=== PATIENT | male | born 1985 | race Caucasian/White ===

== ENCOUNTER 2016-04-12 | Emergency (ER) | payer OTHER ==
--- NOTE | 2016-04-12 17:54 | ED ---
Recheck HPI - General Chief Complaint: Recheck/Abnormal Lab/Rx Stated Complaint: med refill Time Seen by Provider: 04/12/16 17:28 Source: patient, RN notes reviewed Mode of arrival: ambulatory Limitations: no limitations - History of Present Illness Initial Comments: Patient is a 30-year-old male since emergency room for a prescription refill. Patient states he has a history of bipolar disorder. Patient states he is on Prozac and Klonopin. [place] Patient states he has not established a primary care provider yet. Patient states he ran out of his medications and needs a refill until he can establish a primary care provider. Patient states she takes 20 mg of Prozac 4 times a day and 1 mg of Klonopin once a day. Denies any suicidal or homicidal ideations. Patient denies visual or auditory hallucinations. Patient denies any other past medical history. Patient denies fevers, chills, cough, chest pain, shortness of breath, headache, dizziness, nausea, vomiting. - Related Data Home Medications Medication Instructions Recorded Confirmed FLUoxetine HCL [PROzac] 1 tab PO QID 04/12/16 04/12/16 clonazePAM [KlonoPIN] 1 tab PO DAILY 04/12/16 04/12/16 Previous Rx's Medication Instructions Recorded FLUoxetine HCL [PROzac] 20 mg PO QID 14 Days 04/12/16 clonazePAM [KlonoPIN] 1 mg PO DAILY 14 Days 04/12/16 Allergies Allergy/AdvReac Type Severity Reaction Status Date / Time No Known Allergies Allergy Verified 04/12/16 17:31 Review of Systems ROS Statement: Those systems with pertinent positive or pertinent negative responses have been documented in the HPI. ROS Other: All systems not noted in ROS Statement are negative. Past Medical History Past Medical History: No Reported History History of Any Multi-Drug Resistant Organisms: None Reported Past Surgical History: No Surgical Hx Reported Past Psychological History: Depression Smoking Status: Never smoker Past Alcohol Use History: None Reported Past Drug Use History: Marijuana General Exam - General Exam Comments Initial Comments: Sitting in exam room, in no acute distress. Limitations: no limitations General appearance: alert, in no apparent distress Head exam: Present: atraumatic, normocephalic, normal inspection Eye exam: Present: normal appearance ENT exam: Present: normal exam Neck exam: Present: normal inspection Respiratory exam: Present: normal lung sounds bilaterally. Absent: respiratory distress Cardiovascular Exam: Present: regular rate, normal rhythm, normal heart sounds Extremities exam: Present: normal inspection Back exam: Present: normal inspection Neurological exam: Present: alert, oriented X3, CN II-XII intact, normal gait Psychiatric exam: Present: normal affect, normal mood Skin exam: Present: warm, dry, intact, normal color. Absent: rash Course Vital Signs 04/12/16 17:32 Temperature 98.1 F Pulse Rate 77 Respiratory 20 Rate Blood Pressure 144/81 O2 Sat by Pulse 97 Oximetry Medical Decision Making - Medical Decision Making Patient is a 30-year-old male presents to the emergency room for a prescription refill. Patient states he has a history of bipolar disorder for which he takes Prozac and Klonopin for. I agreed to refill patient's prescriptions until he can establish a primary care provider in this area. Patient states he understands everything that was discussed with him. Return parameters discussed. Disposition Clinical Impression: Encounter for medication refill, Bipolar disorder Disposition: HOME SELF-CARE Condition: Good Instructions: Bipolar Disorder (ED) Additional Instructions: Take medications as directed. Please follow-up with the primary care provider for further medication refills. If any new symptom arises or symptoms worsen, return to ER as soon as possible. Prescriptions: FLUoxetine HCL [PROzac] 20 mg PO QID 14 Days clonazePAM [KlonoPIN] 1 mg PO DAILY 14 Days Referrals: Doug Gibbons MD [REFERRING] - 1-2 days Time of Disposition: 17:52
== END 2016-04-12 18:06 | disposition home or self-care (01) ==
CPT/HCPCS: 99281

== ENCOUNTER 2017-10-07 14:56 | Emergency (ER) | payer OTHER ==
[2017-10-07 15:31] VITALS: BP 113/74; PULSE 74; RESP 16; TEMP 98.6
--- NOTE | 2017-10-07 15:58 | XR ---
EXAMINATION TYPE: XR hand complete LT DATE OF EXAM: 10/07/2017 CLINICAL HISTORY: Laceration injury worse over second finger with pain. TECHNIQUE: Frontal, lateral and oblique images of the left hand are obtained. COMPARISON: None. FINDINGS: There is no acute fracture/dislocation evident in the left hand. The joint spaces in the l eft hand appear within normal limits. The overlying soft tissue appears unremarkable without suspici ous radiodense foreign body identified. IMPRESSION: There is no acute fracture or dislocation in the left hand.
[2017-10-07] MEDS ORDERED: DIPH,PERTUS(ACELL)TETVAC-LF 0.5 ML VIAL IM ONE (16:06)
[2017-10-07] MEDS ORDERED: BACITRACIN 500 UNIT/GM OINT 28.4 GM TUBE TOPICAL ONE (16:06)
--- NOTE | 2017-10-07 16:12 | ED ---
Wound/Laceration HPI - General Chief Complaint: Wound/Laceration Stated Complaint: finger lac Time Seen by Provider: 10/07/17 15:55 Source: patient Mode of arrival: ambulatory Limitations: no limitations - History of Present Illness Initial Comments: This is a 31yo male with no PMH who presents today for CC of I drilled into my finger x a few hours. Pt states that earlier in the day pt was trying to drill a screw when the drill bit slipped from the top of the screw and went in sideway into the left second finger on the ventral surface. Pt states tetanus is not UTD. Pt denies any numbness, tingling, parathesias, loss of sensation or coolness of the finger, decreased ROM or strength. Pt admit to pain at the site. Denies any other associated symptoms. - Related Data Home Medications Medication Instructions Recorded Confirmed FLUoxetine HCL [PROzac] 40 mg PO DAILY 10/07/17 10/07/17 Previous Rx's Medication Instructions Recorded Cephalexin [Keflex] 250 mg PO Q6HR 5 Days #20 cap 10/07/17 Allergies Allergy/AdvReac Type Severity Reaction Status Date / Time No Known Allergies Allergy Verified 10/07/17 15:57 Review of Systems ROS Statement: Those systems with pertinent positive or pertinent negative responses have been documented in the HPI. ROS Other: All systems not noted in ROS Statement are negative. Constitutional: Denies: fever, chills Eyes: Denies: eye pain ENT: Denies: ear pain Respiratory: Denies: cough, dyspnea Cardiovascular: Denies: chest pain, palpitations, dyspnea on exertion Endocrine: Denies: fatigue Gastrointestinal: Denies: abdominal pain Genitourinary: Denies: urgency Musculoskeletal: Denies: joint swelling, arthralgia Skin: Reports: as per HPI Neurological: Denies: headache, weakness, numbness, paresthesias, confusion Past Medical History Past Medical History: No Reported History History of Any Multi-Drug Resistant Organisms: None Reported Past Surgical History: No Surgical Hx Reported Past Psychological History: Depression Smoking Status: Never smoker Past Alcohol Use History: None Reported Past Drug Use History: Marijuana General Exam - General Exam Comments Initial Comments: General: The patient is awake and alert, in no distress, and does not appear acutely ill. Eye: Pupils are equal, round and reactive to light, extra-ocular movements are intact. No nystagmus. There is normal conjunctiva bilaterally. No signs of icterus. Ears, nose, mouth and throat: There are moist mucous membranes and no oral lesions. Neck: The neck is supple, there is no tenderness or JVD. Cardiovascular: There is a regular rate and rhythm. No murmur, rub or gallop is appreciated. Respiratory: Lungs are clear to auscultation, respirations are non-labored, breath sounds are equal. No wheezes, stridor, rales, or rhonchi. Gastrointestinal: [Soft, non-distended, non-tender abdomen without masses or organomegaly noted. There is no rebound or guarding present. No CVA tenderness. Bowel sounds are unremarkable.] Musculoskeletal: Sensation intactof fingers of hands b/l. Pulses equal bilaterally 2+ radial. <2 sec capillary refill of 2nd left finger. Full ROM and strength of DIP, PIP and MCP joint of the left second finger and hand. Neurological: A&O x 3. CN II-XII intact, There are no obvious motor or sensory deficits. Coordination appears grossly intact. Speech is normal. Skin: Skin is warm and dry and no rashes or lesions are noted. There is a 1/ 2cm puncture to the second left finger, no active bleeding. Skin is taunt unable to open puncture and explore wound. Psychiatric: Cooperative, appropriate mood & affect, normal judgment. Limitations: no limitations Course Vital Signs 10/07/17 15:27 Temperature 98.6 F Pulse Rate 74 Respiratory 16 Rate Blood Pressure 113/74 O2 Sat by Pulse 97 Oximetry Medical Decision Making - Medical Decision Making Tdap was administered to pt IM. XR revealed no acute process/fracture or FB. Puncture was irrigated extensively. Bacitracin was applied and wound was covered with bandage due to being a pucture type of wound. Pt was prescribed RX for keflex for infection prevention due to puncture wound. Pt was discharged in stable condition. Case was discussed in detail with Dr. Garcia. Disposition Clinical Impression: Puncture wound of finger of left hand Disposition: HOME SELF-CARE Condition: Good Instructions: Puncture Wound (ED) Additional Instructions: Please use medication as discussed. Please follow-up with family doctor in the next 2 days of symptoms have not improved. Please return to emergency room if the symptoms increase or worsen or for any other concerns as discussed. Prescriptions: Cephalexin [Keflex] 250 mg PO Q6HR 5 Days #20 cap Is patient prescribed a controlled substance at d/c from ED?: No Referrals: Renard Matthew MD [Primary Care Provider] - 1-2 days Time of Disposition: 16:47
== END 2017-10-07 17:08 | disposition home or self-care (01) ==
LOC: EC 14:56
DX: S61.231A Puncture wound without foreign body of left index finger without damage to nail, initial encounter (principal); F32.9 Major depressive disorder, single episode, unspecified; Z79.899 Other long term (current) drug therapy; Z23 Encounter for immunization; W27.8XXA Contact with other nonpowered hand tool, initial encounter; Y93.89 Activity, other specified; Y92.009 Unspecified place in unspecified non-institutional (private) residence as the place of occurrence of the external cause
CPT/HCPCS: 90471; 90715; 99283

== ENCOUNTER 2020-02-17 09:39 | Emergency (ER) | payer OTHER ==
[2020-02-17 09:45] VITALS: BP 137/87; PULSE 106; RESP 18; TEMP 99.2
[2020-02-17] MEDS ORDERED: predniSONE 50 MG TAB PO STA (09:59)
[2020-02-17] MEDS ORDERED: diphenhydrAMINE 50 MG CAP PO STA (09:59)
[2020-02-17] MEDS ORDERED: FAMOTIDINE 20 MG TAB PO STA (09:59)
--- NOTE | 2020-02-17 10:01 | ED ---
Skin/Abscess/FB HPI - General Chief complaint: Skin/Abscess/Foreign Body Stated complaint: Rash/Hand Swelling Time Seen by Provider: 02/17/20 09:47 Source: patient, RN notes reviewed Mode of arrival: ambulatory Limitations: no limitations - History of Present Illness Initial comments: 34-year-old male presents emergency Department chief complaint of rash. Patient states started overnight states she has a rash his left hip, hand swelling. Patient states it's very itchy in nature. Denies any difficulty breathing or swallowing. Is not taking medications prior arrival denies any new products including soaps lotions detergents or new medications. Patient offers no complaints. - Related Data Home Medications Medication Instructions Recorded Confirmed FLUoxetine HCL [PROzac] 40 mg PO DAILY 10/07/17 10/07/17 Previous Rx's Medication Instructions Recorded Cephalexin [Keflex] 250 mg PO Q6HR 5 Days #20 cap 10/07/17 diphenhydrAMINE [Benadryl] 50 mg PO QID PRN #20 capsule 02/17/20 Allergies Allergy/AdvReac Type Severity Reaction Status Date / Time No Known Allergies Allergy Verified 02/17/20 09:45 Review of Systems ROS Statement: Those systems with pertinent positive or pertinent negative responses have been documented in the HPI. ROS Other: All systems not noted in ROS Statement are negative. Past Medical History Past Medical History: No Reported History History of Any Multi-Drug Resistant Organisms: None Reported Past Surgical History: No Surgical Hx Reported Past Psychological History: Depression Smoking Status: Never smoker Past Alcohol Use History: None Reported Past Drug Use History: Marijuana General Exam Limitations: no limitations General appearance: alert, in no apparent distress Head exam: Present: atraumatic, normocephalic, normal inspection Eye exam: Present: normal appearance, PERRL, EOMI. Absent: scleral icterus, conjunctival injection, periorbital swelling ENT exam: Present: normal exam, normal oropharynx, mucous membranes moist Neck exam: Present: normal inspection, full ROM. Absent: tenderness, meningismus, lymphadenopathy Respiratory exam: Present: normal lung sounds bilaterally. Absent: respiratory distress, wheezes, rales, rhonchi, stridor Cardiovascular Exam: Present: regular rate, normal rhythm, normal heart sounds. Absent: systolic murmur, diastolic murmur, rubs, gallop, clicks Skin exam: Present: rash (Mild hand swelling, erythema noted, urticaria noted in the left hip) Course Vital Signs 02/17/20 09:44 Temperature 99.2 F Pulse Rate 106 H Respiratory 18 Rate Blood Pressure 137/87 O2 Sat by Pulse 99 Oximetry Medical Decision Making - Medical Decision Making Patient has mild ALLERGIC reaction with no difficulty breathing or difficulty swelling. Patient was provided Benadryl Pepcid and prednisone. Patient will continue Benadryl at home return parameters were discussed. Disposition Clinical Impression: Urticaria, Allergic reaction Disposition: HOME SELF-CARE Condition: Stable Instructions (If sedation given, give patient instructions): Urticaria (ED) Additional Instructions: Please return to the Emergency Department if symptoms worsen or any other concerns. Prescriptions: diphenhydrAMINE [Benadryl] 50 mg PO QID PRN #20 capsule PRN Reason: ALLERGIC symptoms Is patient prescribed a controlled substance at d/c from ED?: No Referrals: Emilee Mohan MD [Primary Care Provider] - 1-2 days Time of Disposition: 10:01
== END 2020-02-17 10:22 | disposition home or self-care (01) ==
LOC: EC 09:39
DX: L50.0 Allergic urticaria (principal); F32.9 Major depressive disorder, single episode, unspecified; Z79.899 Other long term (current) drug therapy
CPT/HCPCS: 99282; J7512